=== PATIENT | male | born 1965 | race Caucasian/White ===

== ENCOUNTER 2021-04-28 16:43 | Observation (INO) | payer OTHER ==
[2021-04-28] MEDS ORDERED: DUONEB 0.5-3 MG/3 ml Neb IH ONE ×2 (17:43→17:55)
[2021-04-28] MEDS ORDERED: solu-MEDROL 125 MG, Sterile H2O 10 ml 2 ML IV ONE ×2 (17:43)
[2021-04-28] MEDS ORDERED: Lasix 40 MG/4 ML IV ONE (17:43)
[2021-04-28] MEDS ORDERED: BABY ASPIRIN 81 MG CHEW PO ONE (17:44)
--- NOTE | 2021-04-28 17:49 | ERPHSYRPT ---
- History of Present Illness Time Seen by Provider: 04/28/21 17:15 Source: patient Exam Limitations: no limitations Patient Subjective Stated Complaint: Patient states he has had swelling and shortness of breath for one month. STates he was tested for Covid last week because he was sick because it was negative. States his legs "get like this sometimes" but usually his "water pill helps". States he is taking his medication as prescribed. Triage Nursing Assessment: patients legs edema bilaterally. lower legs hot to touch and red in color. R great toe swollen. pulses present. Physician History: 55 years old male with a history of COPD, tobacco abuse, coronary artery disease status post stenting, congestive heart failure presented in the ER with chief complaint of creasing shortness of breath for last 3 weeks and bilateral lower extremity swelling. Patient reports he was seen at primary care and is on Lasix orally but does not seem helping. Patient reports shortness of breath especially with activity and gets out of breath walking from one room to another and has to rest to catch his breath. Denies any chest pain but tightness and pressure. No fever chills but has productive cough. Patient reports bilateral leg and feet swelling and tightness which is getting worse lately. Timing/Duration: week(s) (3), constant, gradual onset, worse Activities at Onset: activity Severity of Dyspnea-Max: moderate Severity of Dyspnea-Current: moderate Possible Cause: occasional episodes Modifying Factors: Worsens With: coughing, exertion Associated Symptoms: cough, chest pain/discomfort, edema, heaviness, muscle spasms hands, productive cough, tightness Allergies/Adverse Reactions: No Known Drug Allergies Allergy (Unverified 04/28/21 17:13) Home Medications: Atorvastatin Calcium 20 mg PO DAILY 04/28/21 [History] Dextroamphetamine/Amphetamine [Adderall 15 mg Tablet] 15 mg PO DAILY 04/28/21 [History] Furosemide 40 mg [Lasix 40 MG] 40 mg PO DAILY 04/28/21 [History] Hydrocodone/Acetaminophen [Hydrocodone-Acetamin 10-300 mg] 1 tab PO PRN 04/28/21 [History] Testosterone Cypionate 100 mg IM 04/28/21 [History] Hx Tetanus, Diphtheria Vaccination/Date Given: Yes Hx Influenza Vaccination/Date Given: Yes Hx Pneumococcal Vaccination/Date Given: Yes Immunizations Up to Date: Yes Travel Risk - International Travel Have you traveled outside of the country in past 3 weeks: No - Coronavirus Screening Are you exhibiting any of the following symptoms?: Yes Symptoms: Shortness of Breath - Vaccine Status Have you recieved a Covid-19 vaccination: No - Review of Systems Constitutional: No Symptoms Eyes: No Symptoms Ears, Nose, & Throat: No Symptoms Respiratory: Cough, Dyspnea, Dyspnea on Exertion (HERNANDEZ), Wheezing Cardiac: No Symptoms Abdominal/Gastrointestinal: No Symptoms Genitourinary Symptoms: No Symptoms Musculoskeletal: No Symptoms Skin: No Symptoms Neurological: No Symptoms Psychological: No Symptoms Endocrine: No Symptoms Hematologic/Lymphatic: No Symptoms Immunological/Allergic: No Symptoms - Past Medical History Pertinent Past Medical History: Yes Neurological History: No Pertinent History ENT History: No Pertinent History Cardiac History: Other Respiratory History: No Pertinent History Endocrine Medical History: No Pertinent History Musculoskeletal History: No Pertinent History GI Medical History: No Pertinent History History: No Pertinent History Psycho-Social History: No Pertinent History Male Reproductive Disorders: No Pertinent History Other Medical History: blockage in heart stint in october 2019, heart attack june 2020- two stints, - Past Surgical History Past Surgical History: Yes Neuro Surgical History: No Pertinent History Cardiac: No Pertinent History Respiratory: No Pertinent History Gastrointestinal: No Pertinent History Genitourinary: No Pertinent History Musculoskeletal: Other Male Surgical History: No Pertinent History Other Surgical History: Spinal surgery for cyst, carpal tunnel surgery R hand, pins in L wrist - Social History Smoking Status: Current every day smoker Exposure to second hand smoke: Yes Drug Use: marijuana Patient Lives Alone: Yes - Nursing Vital Signs Nursing Vital Signs: Initial Vital Signs Temperature 97.1 F 04/28/21 17:03 Pulse Rate 109 H 04/28/21 17:03 Respiratory Rate 20 04/28/21 17:03 Blood Pressure 158/106 04/28/21 17:03 O2 Sat by Pulse Oximetry 98 04/28/21 17:03 Pain Scale Pain Intensity 4 - Physical Exam General Appearance: no apparent distress, alert Eye Exam: PERRL/EOMI, eyes nml inspection Ears, Nose, Throat Exam: hearing grossly normal, normal ENT inspection Neck Exam: normal inspection, non-tender, supple, full range of motion Respiratory Exam: diminished breath sounds, rhonchi, wheezing Cardiovascular/Chest Exam: normal heart sounds, edema, tachycardia Abdominal/Gastrointestinal Exam: soft, normal bowel sounds, No tenderness Extremity Exam: non-tender, normal range of motion, No no pedal edema Neurologic Exam: alert, oriented x 3, cooperative Skin Exam: normal color SpO2 Interpretation: normal SpO2: 98 O2 Delivery: Room Air - Course EKG Interpreted by Me: RATE ([id number]), Sinus Rhythm, Left [place] Deviation, NORMAL INTERVALS, Q-wave, Non-specific ST Changes Ordered Tests: Active Orders 24 hr Category Date Time Status Factory Assembler STAT Care 04/28/21 17:44 Active EKG-ER Only STAT Care 04/28/21 17:43 Active IV Insertion STAT Care 04/28/21 17:43 Active Oxygen-ED Only Nasal Cannula 2 lpm Care 04/28/21 17:43 Active CHEST 1 VIEW (PORTABLE) Stat Exams 04/28/21 17:44 Taken BLOOD CULTURE Stat Lab 04/28/21 17:44 Ordered CBC W DIFF Stat Lab 04/28/21 18:33 Completed CMP Stat Lab 04/28/21 18:33 Completed Lactic Acid Stat Lab 04/28/21 18:45 Completed MAGNESIUM Stat Lab 04/28/21 18:33 Completed NT PRO BNP Stat Lab 04/28/21 18:33 Completed TROPONIN Q3H Lab 04/28/21 18:33 Completed TROPONIN Q3H Lab 04/28/21 20:45 Ordered TROPONIN Q3H Lab 04/28/21 23:45 Ordered TROPONIN Q3H Lab 04/29/21 02:45 Ordered TROPONIN Q3H Lab 04/29/21 05:45 Ordered UA W/RFX UR CULTURE Stat Lab 04/28/21 18:49 Completed Respiratory Therapy Assessment DAILY RT 04/28/21 18:55 Active Medication Summary Discontinued Medications Generic Name Dose Route Start Last Admin Trade Name Freq PRN Reason Stop Dose Admin Albuterol/Ipratropium 3 ml 04/28/21 17:43 04/28/21 17:55 Ipratropium/Albuterol Sulfate 3 Ml Ampul.Neb IH 04/28/21 17:44 3 ml STAT ONE Administration Albuterol/Ipratropium Confirm 04/28/21 17:55 Ipratropium/Albuterol Sulfate 3 Ml Ampul.Neb Administered 04/28/21 17:56 Dose 3 ml IH .STK-MED ONE Aspirin 324 mg 04/28/21 17:44 04/28/21 17:55 Aspirin 81 Mg Tab.Chew PO 04/28/21 17:45 324 mg STAT ONE Administration Methylprednisolone Sodium 0 mg 04/28/21 17:43 04/28/21 17:55 Succinate 125 mg/ Sterile IV 04/28/21 17:44 125 mg Water 2 ml STAT ONE Administration Furosemide 60 mg 04/28/21 17:43 04/28/21 17:54 Furosemide 40 Mg/4 Ml Vial IV 04/28/21 17:44 60 mg STAT ONE Administration Furosemide Confirm 04/28/21 17:53 Furosemide 40 Mg/4 Ml Vial Administered 04/28/21 17:54 Dose 80 mg .ROUTE .STK-MED ONE Methylprednisolone Sodium Succinate Confirm 04/28/21 17:53 Methylprednis Sod Succ 125 Mg/2 Ml Vial Administered 04/28/21 17:54 Dose 125 mg .ROUTE .STK-MED ONE Sterile Water Confirm 04/28/21 17:53 Water For Injection,Sterile 10 Ml Vial Administered 04/28/21 17:54 Dose 10 ml IJ .STK-MED ONE Lab/Rad Data: Laboratory Result Diagrams 04/28/21 18:33 04/28/21 18:33 Laboratory Results 04/28/21 04/28/21 04/28/21 Range/Units 18:49 18:45 18:33 WBC (4.0-10.5) K/mm3 RBC (4.1-5.6) M/mm3 Hgb (12.5-18.0) gm/dl Hct (42-50) % MCV (78-100) fl MCH (26-32) pg MCHC (32-36) g/dl RDW (11.5-14.0) % Plt Count (150-450) K/mm3 MPV (7.5-11.0) fl Gran % (36.0-66.0) % Eos # (Auto) (0-0.5) Absolute Lymphs (auto) (1.0-4.6) Absolute Monos (auto) (0.0-1.3) Lymphocytes % (24.0-44.0) % Monocytes % (0.0-12.0) % Eosinophils % (0.00-5.0) % Basophils % (0.0-0.4) % Absolute Granulocytes (1.4-6.9) Basophils # (0-0.4) Sodium (137-145) mmol/L Potassium (3.5-5.1) mmol/L Chloride (98-107) mmol/L Carbon Dioxide (22-30) mmol/L Anion Gap (5-15) MEQ/L BUN (9-20) mg/dL Creatinine (0.66-1.25) mg/dL Estimated GFR ML/MIN Glucose (74-106) mg/dL Lactic Acid 1.3 (0.4-2.0) Calcium (8.4-10.2) mg/dL Magnesium (1.6-2.3) mg/dL Total Bilirubin (0.2-1.3) mg/dL AST (17-59) U/L ALT (0-50) U/L Alkaline Phosphatase (38-126) U/L Troponin I 0.051 H* (0.000-0.034) ng/mL NT-Pro-B Natriuret Pep (0-900) pg/mL Serum Total Protein (6.3-8.2) g/dL Albumin (3.5-5.0) g/dL Urine Color YELLOW (YELLOW) Urine Appearance CLEAR (CLEAR) Urine pH 6.0 (5-6) Ur Specific [place] 1.010 (1.005-1.025) Urine Protein NEGATIVE (Negative) Urine Ketones NEGATIVE (NEGATIVE) Urine Blood NEGATIVE (0-5) Nasir/ul Urine Nitrite NEGATIVE (NEGATIVE) Urine Bilirubin NEGATIVE (NEGATIVE) Urine Urobilinogen NEGATIVE (0-1) mg/dL Ur Leukocyte Esterase NEGATIVE (NEGATIVE) Urine WBC (Auto) NONE (0-5) /HPF Urine RBC (Auto) NONE (0-2) /HPF U Epithel Cells (Auto) NONE (FEW) /HPF Urine Bacteria (Auto) NONE (NEGATIVE) /HPF Urine Mucus (Auto) SLIGHT (NEGATIVE) /HPF Urine Culture Reflexed NO (NO) Urine Glucose 50 (NEGATIVE) mg/dL 04/28/21 04/28/21 Range/Units 18:33 18:33 WBC 6.3 (4.0-10.5) K/mm3 RBC 4.57 (4.1-5.6) M/mm3 Hgb 11.9 L (12.5-18.0) gm/dl Hct 39.1 L (42-50) % MCV 85.6 (78-100) fl MCH 26.0 (26-32) pg MCHC 30.4 L (32-36) g/dl RDW 14.9 H (11.5-14.0) % Plt Count 160 (150-450) K/mm3 MPV 10.9 (7.5-11.0) fl Gran % 68.7 H (36.0-66.0) % Eos # (Auto) 0.21 (0-0.5) Absolute Lymphs (auto) 1.20 (1.0-4.6) Absolute Monos (auto) 0.55 (0.0-1.3) Lymphocytes % 19.0 L (24.0-44.0) % Monocytes % 8.7 (0.0-12.0) % Eosinophils % 3.3 (0.00-5.0) % Basophils % 0.3 (0.0-0.4) % Absolute Granulocytes 4.33 (1.4-6.9) Basophils # 0.02 (0-0.4) Sodium 143 (137-145) mmol/L Potassium 3.6 (3.5-5.1) mmol/L Chloride 104 (98-107) mmol/L Carbon Dioxide 29 (22-30) mmol/L Anion Gap 13.1 (5-15) MEQ/L BUN 19 (9-20) mg/dL Creatinine 1.52 H (0.66-1.25) mg/dL Estimated GFR 50.7 ML/MIN Glucose 126 H (74-106) mg/dL Lactic Acid (0.4-2.0) Calcium 8.5 (8.4-10.2) mg/dL Magnesium 1.7 (1.6-2.3) mg/dL Total Bilirubin 1.00 (0.2-1.3) mg/dL AST 22 (17-59) U/L ALT 22 (0-50) U/L Alkaline Phosphatase 81 (38-126) U/L Troponin I (0.000-0.034) ng/mL NT-Pro-B Natriuret Pep 4130 H (0-900) pg/mL Serum Total Protein 7.1 (6.3-8.2) g/dL Albumin 3.9 (3.5-5.0) g/dL Urine Color (YELLOW) Urine Appearance (CLEAR) Urine pH (5-6) Ur Specific [place] (1.005-1.025) Urine Protein (Negative) Urine Ketones (NEGATIVE) Urine Blood (0-5) Nasir/ul Urine Nitrite (NEGATIVE) Urine Bilirubin (NEGATIVE) Urine Urobilinogen (0-1) mg/dL Ur Leukocyte Esterase (NEGATIVE) Urine WBC (Auto) (0-5) /HPF Urine RBC (Auto) (0-2) /HPF U Epithel Cells (Auto) (FEW) /HPF Urine Bacteria (Auto) (NEGATIVE) /HPF Urine Mucus (Auto) (NEGATIVE) /HPF Urine Culture Reflexed (NO) Urine Glucose (NEGATIVE) mg/dL - Progress Progress: improved Air Movement: fair Progress Note: 04/28/21 19:31 55 years old is evaluated for increasing bilateral lower extremity swelling and difficulty breathing despite taking Lasix. Is given breathing treatment, IV Lasix. Chest x-ray showed bilateral congestion. Patient has elevated BNP of 4100 and initial troponin of 0.[address] elevations. I believe elevated troponin is secondary to CHF exacerbation. I have discussed with Dr. Narvaez and patient is being admitted for CHF exacerbation, diuresis and will continue to trend cardiac enzymes. Blood Culture(s) Obtained: Yes Antibiotics given: No Discussed with : Ramses Will see patient in: hospital (observation) Counseled pt/family regarding: lab results, diagnosis, rad results - Departure Departure Disposition: Observation Clinical Impression: CHF exacerbation Condition: Stable Critical Care Time: No Referrals: MARY FINN [Primary Care Provider] - Follow up/PCP as directed Instructions: Heart Failure
[2021-04-28] MEDS ORDERED: Sterile H2O 10 ml IJ ONE (17:53)
[2021-04-28] MEDS ORDERED: solu-MEDROL ONE (17:53)
[2021-04-28] MEDS ORDERED: Lasix 40 MG/4 ML ONE (17:53)
[2021-04-28 18:36] LABS: Absolute Neutrophil Ct (ANC) 4.33 (1.4-6.9); Basophil (Absolute #) 0.02 (0-0.4); Eosinophil % 3.3 % (0.00-5.0); Eosinophil (Absolute #) 0.21 (0-0.5); Hematocrit 39.1 % (42-50); Hemoglobin 11.9 gm/dl (12.5-18.0); Mean Cell Volume 85.6 fl (78-100); Mean Corpuscular Hgb Concent. 30.4 g/dl (32-36); Mean Platelet Volume 10.9 fl (7.5-11.0); Monocyte (Absolute #) 0.55 (0.0-1.3); Monocytes % 8.7 % (0.0-12.0); Neutrophil % 68.7 % (36.0-66.0); Platelet Count 160 K/mm3 (150-450); Red Blood Count 4.57 M/mm3 (4.1-5.6); Red Cell Distribution Width 14.9 % (11.5-14.0); White Blood Count 6.3 K/mm3 (4.0-10.5)
[2021-04-28 18:56] LABS: ALBUMIN 3.9 g/dL (3.5-5.0); ANION GAP 13.1 MEQ/L (5-15); Calcium 8.5 mg/dL (8.4-10.2); Creatinine 1 1.52 mg/dL (0.66-1.25); EST GLOMERULAR FILTRATION RATE 50.7 ML/MIN; MAGNESIUM 1.7 mg/dL (1.6-2.3); Potassium 3.6 mmol/L (3.5-5.1); Total Protein 7.1 g/dL (6.3-8.2)
[2021-04-28 19:23] LABS: Appearance CLEAR (CLEAR); Bilirubin NEGATIVE (NEGATIVE); Blood NEGATIVE Ery/ul (0-5); Glucose 50 mg/dL (NEGATIVE); Ketones NEGATIVE (NEGATIVE); Leukocyte Esterase NEGATIVE (NEGATIVE); Mucus SLIGHT /HPF (NEGATIVE); Nitrite NEGATIVE (NEGATIVE); Protein,Urine Dip NEGATIVE (Negative); Urobilinogen NEGATIVE mg/dL (0-1)
--- NOTE | 2021-04-28 19:42 | XRAY ---
Indication: Short of breath. Bilateral leg swelling. Comparison: September 17, 2006. Portable chest is limited as both costophrenic angles not included. New cardiomegaly and small right base calcified granuloma. Remaining visualized lungs clear. Bony thorax intact.
[2021-04-28 23:02] LABS: INFLUENZA A NEGATIVE (NEGATIVE); INFLUENZA B NEGATIVE (NEGATIVE); RESPIRATORY SYNCTIAL VIRUS NEGATIVE (Negative); SARS-CoV-2 Xpert Express NEGATIVE (NEGATIVE)
[2021-04-29] MEDS ORDERED: TYLENOL 325 MG PO PRN (00:57)
[2021-04-29] MEDS ORDERED: MORPHINE SULFATE 2 MG INJ IV PRN (00:57)
[2021-04-29] MEDS ORDERED: Zofran 4 MG/2 ML VIAL IV PRN (00:57)
[2021-04-29] MEDS: DUONEB 0.5-3 MG/3 ml Neb IH SCH ×2 (01:25→07:19)
[2021-04-29 05:17] LABS: Hematocrit 36.2 % (42-50); Hemoglobin 11.5 gm/dl (12.5-18.0); Mean Cell Volume 82.8 fl (78-100); Mean Corpuscular Hemoglobin 26.3 pg (26-32); Mean Corpuscular Hgb Concent. 31.8 g/dl (32-36); Mean Platelet Volume 10.8 fl (7.5-11.0); Platelet Count 189 K/mm3 (150-450); Red Blood Count 4.37 M/mm3 (4.1-5.6); Red Cell Distribution Width 14.7 % (11.5-14.0); White Blood Count 4.2 K/mm3 (4.0-10.5)
[2021-04-29 05:21] LABS: Lymphocytes % 5.3 % (24.0-44.0); Neutrophil % 93.7 % (36.0-66.0)
[2021-04-29 05:22] LABS: Absolute Neutrophil Ct (ANC) 3.89 (1.4-6.9); Basophil (Absolute #) 0 (0-0.4); Eosinophil (Absolute #) 0 (0-0.5); Lymphocyte (Absolute #) 0.22 (1.0-4.6); Monocyte (Absolute #) 0.04 (0.0-1.3)
[2021-04-29 05:43] LABS: ALBUMIN 4.1 g/dL (3.5-5.0); ANION GAP 15.1 MEQ/L (5-15); BILIRUBIN,TOTAL 0.7 mg/dL (0.2-1.3); Calcium 8.6 mg/dL (8.4-10.2); Creatinine 1 1.62 mg/dL (0.66-1.25); EST GLOMERULAR FILTRATION RATE 47.1 ML/MIN; Potassium 3.5 mmol/L (3.5-5.1); Total Protein 7.7 g/dL (6.3-8.2)
[2021-04-29 06:50] LABS: Slide Review 1 YES
--- NOTE | 2021-04-29 07:21 | PCM.HP ---
History of Present Illness - Chief Complaint Chief Complaint: shortness of breath for 1-2 days History of Present Illness: is a 55 year old male.with a history of COPD, tobacco abuse, coronary artery disease status post stenting, congestive heart failure presented in the ER with chief complaint of creasing shortness of breath for last 3 weeks and bilateral lower extremity swelling. Patient reports he was seen at primary care and is on Lasix orally but does not seem helping. Patient reports shortness of breath especially with activity and gets out of breath walking from one room to another and has to rest to catch his breath. Denies any chest pain but tightness and pressure. No fever chills but has productive cough. Patient reports bilateral leg and feet swelling and tightness which is getting worse lately. Timing/Duration: week(s) (3), constant, gradual onset, worse Activities at Onset: activity Severity of Dyspnea-Max: moderate Severity of Dyspnea-Current: moderate Possible Cause: occasional episodes Modifying Factors: Worsens With: coughing, exertion Associated Symptoms: cough, chest pain/discomfort, edema, heaviness, muscle spasms hands, productive cough, tightness - Review of Systems Constitutional: No Fever, No Chills Eyes: No Symptoms Ears, Nose, & Throat: No Symptoms Respiratory: Orthopnea, Short Of Breath, Wheezing, No Cough Cardiac: No Chest Pain, No Edema, No Syncope Abdominal/Gastrointestinal: No Abdominal Pain, No Nausea, No Vomiting, No Diarrhea Genitourinary Symptoms: No Dysuria Musculoskeletal: No Back Pain, No Neck Pain Skin: No Rash Neurological: No Dizziness, No Focal Weakness, No Sensory Changes Psychological: No Symptoms Endocrine: No Symptoms Hematologic/Lymphatic: No Symptoms Immunological/Allergic: No Symptoms Medications & Allergies Home Medications: Home Medication List Atorvastatin Calcium 20 mg PO DAILY 04/28/21 [History Confirmed 04/28/21] Dextroamphetamine/Amphetamine [Adderall 15 mg Tablet] 15 mg PO DAILY 04/28/21 [History Confirmed 04/28/21] Furosemide 40 mg [Lasix 40 MG] 40 mg PO DAILY 04/28/21 [History Confirmed 04/28/21] Hydrocodone/Acetaminophen [Hydrocodone-Acetamin 10-300 mg] 1 tab PO PRN 04/28/21 [History] Testosterone Cypionate 100 mg IM 04/28/21 [History] Allergies/Adverse Reactions: Allergies Allergy/AdvReac Type Severity Reaction Status Date / Time No Known Drug Allergies Allergy Unverified 04/28/21 17:13 - Past Medical History Past Medical History: Yes Neurological History: No Pertinent History ENT History: No Pertinent History Cardiac History: Congestive Heart Failure, Myocardial Infarction ([place]), Other Respiratory History: No Pertinent History Endocrine Medical History: No Pertinent History Musculoskelatal History: No Pertinent History GI Medical History: No Pertinent History History: No Pertinent History Pyscho-Social History: No Pertinent History Male Reproductive Disorders: No Pertinent History Comment: blockage in heart stint in october 2019, heart attack june 2020- two stints, - Past Surgical History Past Surgical History: Yes Neuro Surgical History: No Pertinent History Cardiac History: Cardiac Stent Respiratory Surgery: No Pertinent History GI Surgical History: No Pertinent History Genitourinary Surgical Hx: No Pertinent History Musculskeletal Surgical Hx: Other Male Surgical History: No Pertinent History Other Surgical History: Spinal surgery for cyst, carpal tunnel surgery R hand, pins in L wrist - Social History Smoking Status: Current every day smoker Exposure to second hand smoke: Yes Alcohol: None Drug Use: marijuana - Physical Exam Vital Signs: Vital Signs - 24 hr Temp Pulse Resp BP Pulse Ox 04/29/21 04:00 97.8 F 95 H 20 116/58 96 04/29/21 01:25 98 H 18 93 L 04/29/21 01:08 96.5 F 88 20 116/70 95 04/29/21 00:09 88 137/78 95 04/28/21 23:11 90 133/83 95 04/28/21 22:07 94 H 111/63 96 04/28/21 21:10 91 H 131/93 95 04/28/21 20:21 89 127/87 96 04/28/21 19:39 92 H 141/92 97 04/28/21 19:34 98 04/28/21 18:55 98 H 18 192/117 93 L 04/28/21 17:55 99 H 18 97 04/28/21 17:03 97.1 F 109 H 20 158/106 98 General Appearance: no apparent distress, alert Neurologic Exam: alert, oriented x 3, cooperative, normal mood/affect, nml cerebellar function, nml station & gait, sensation nml, No motor deficits Eye Exam: PERRL/EOMI, eyes nml inspection Ears, Nose, Throat Exam: normal ENT inspection, TMs normal, pharynx normal, moist mucous membranes Neck Exam: normal inspection, non-tender, supple, full range of motion Respiratory Exam: diminished breath sounds, crackles/rales, rhonchi, wheezing, No respiratory distress Cardiovascular Exam: regular rate/rhythm, normal heart sounds, normal peripheral pulses Gastrointestinal/Abdomen Exam: soft, normal bowel sounds, No tenderness, No mass Back Exam: normal inspection, normal range of motion, No CVA tenderness, No vertebral tenderness Extremity Exam: normal inspection, normal range of motion, pelvis stable Skin Exam: normal color, warm, dry, No rash Lymphatic Exam: No adenopathy Results - Labs Lab/Micro Results: Lab Results-Last 24 Hours 04/28/21 04/28/21 04/28/21 Range/Units 18:33 18:33 18:33 WBC 6.3 (4.0-10.5) K/mm3 RBC 4.57 (4.1-5.6) M/mm3 Hgb 11.9 L (12.5-18.0) gm/dl Hct 39.1 L (42-50) % MCV 85.6 (78-100) fl MCH 26.0 (26-32) pg MCHC 30.4 L (32-36) g/dl RDW 14.9 H (11.5-14.0) % Plt Count 160 (150-450) K/mm3 MPV 10.9 (7.5-11.0) fl Gran % 68.7 H (36.0-66.0) % Eos # (Auto) 0.21 (0-0.5) Absolute Lymphs (auto) 1.20 (1.0-4.6) Absolute Monos (auto) 0.55 (0.0-1.3) Lymphocytes % 19.0 L (24.0-44.0) % Monocytes % 8.7 (0.0-12.0) % Eosinophils % 3.3 (0.00-5.0) % Basophils % 0.3 (0.0-0.4) % Absolute Granulocytes 4.33 (1.4-6.9) Basophils # 0.02 (0-0.4) Sodium 143 (137-145) mmol/L Potassium 3.6 (3.5-5.1) mmol/L Chloride 104 (98-107) mmol/L Carbon Dioxide 29 (22-30) mmol/L Anion Gap 13.1 (5-15) MEQ/L BUN 19 (9-20) mg/dL Creatinine 1.52 H (0.66-1.25) mg/dL Estimated GFR 50.7 ML/MIN Glucose 126 H (74-106) mg/dL Lactic Acid (0.4-2.0) Calcium 8.5 (8.4-10.2) mg/dL Magnesium 1.7 (1.6-2.3) mg/dL Total Bilirubin 1.00 (0.2-1.3) mg/dL AST 22 (17-59) U/L ALT 22 (0-50) U/L Alkaline Phosphatase 81 (38-126) U/L Troponin I 0.051 H* (0.000-0.034) ng/mL NT-Pro-B Natriuret Pep 4130 H (0-900) pg/mL Serum Total Protein 7.1 (6.3-8.2) g/dL Albumin 3.9 (3.5-5.0) g/dL Urine Color (YELLOW) Urine Appearance (CLEAR) Urine pH (5-6) Ur Specific [place] (1.005-1.025) Urine Protein (Negative) Urine Ketones (NEGATIVE) Urine Blood (0-5) Nasir/ul Urine Nitrite (NEGATIVE) Urine Bilirubin (NEGATIVE) Urine Urobilinogen (0-1) mg/dL Ur Leukocyte Esterase (NEGATIVE) Urine WBC (Auto) (0-5) /HPF Urine RBC (Auto) (0-2) /HPF U Epithel Cells (Auto) (FEW) /HPF Urine Bacteria (Auto) (NEGATIVE) /HPF Urine Mucus (Auto) (NEGATIVE) /HPF Urine Culture Reflexed (NO) Urine Glucose (NEGATIVE) mg/dL Influenza Type A Ag (NEGATIVE) Influenza Type B Ag (NEGATIVE) RSV (PCR) (Negative) SARS-CoV-2 (PCR) (NEGATIVE) Slides for Path Review 04/28/21 04/28/21 04/28/21 Range/Units 18:45 18:49 21:15 WBC (4.0-10.5) K/mm3 RBC (4.1-5.6) M/mm3 Hgb (12.5-18.0) gm/dl Hct (42-50) % MCV (78-100) fl MCH (26-32) pg MCHC (32-36) g/dl RDW (11.5-14.0) % Plt Count (150-450) K/mm3 MPV (7.5-11.0) fl Gran % (36.0-66.0) % Eos # (Auto) (0-0.5) Absolute Lymphs (auto) (1.0-4.6) Absolute Monos (auto) (0.0-1.3) Lymphocytes % (24.0-44.0) % Monocytes % (0.0-12.0) % Eosinophils % (0.00-5.0) % Basophils % (0.0-0.4) % Absolute Granulocytes (1.4-6.9) Basophils # (0-0.4) Sodium (137-145) mmol/L Potassium (3.5-5.1) mmol/L Chloride (98-107) mmol/L Carbon Dioxide (22-30) mmol/L Anion Gap (5-15) MEQ/L BUN (9-20) mg/dL Creatinine (0.66-1.25) mg/dL Estimated GFR ML/MIN Glucose (74-106) mg/dL Lactic Acid 1.3 (0.4-2.0) Calcium (8.4-10.2) mg/dL Magnesium (1.6-2.3) mg/dL Total Bilirubin (0.2-1.3) mg/dL AST (17-59) U/L ALT (0-50) U/L Alkaline Phosphatase (38-126) U/L Troponin I 0.045 H* (0.000-0.034) ng/mL NT-Pro-B Natriuret Pep (0-900) pg/mL Serum Total Protein (6.3-8.2) g/dL Albumin (3.5-5.0) g/dL Urine Color YELLOW (YELLOW) Urine Appearance CLEAR (CLEAR) Urine pH 6.0 (5-6) Ur Specific [place] 1.010 (1.005-1.025) Urine Protein NEGATIVE (Negative) Urine Ketones NEGATIVE (NEGATIVE) Urine Blood NEGATIVE (0-5) Nasir/ul Urine Nitrite NEGATIVE (NEGATIVE) Urine Bilirubin NEGATIVE (NEGATIVE) Urine Urobilinogen NEGATIVE (0-1) mg/dL Ur Leukocyte Esterase NEGATIVE (NEGATIVE) Urine WBC (Auto) NONE (0-5) /HPF Urine RBC (Auto) NONE (0-2) /HPF U Epithel Cells (Auto) NONE (FEW) /HPF Urine Bacteria (Auto) NONE (NEGATIVE) /HPF Urine Mucus (Auto) SLIGHT (NEGATIVE) /HPF Urine Culture Reflexed NO (NO) Urine Glucose 50 (NEGATIVE) mg/dL Influenza Type A Ag (NEGATIVE) Influenza Type B Ag (NEGATIVE) RSV (PCR) (Negative) SARS-CoV-2 (PCR) (NEGATIVE) Slides for Path Review 04/28/21 04/28/21 04/29/21 Range/Units 22:10 23:54 02:44 WBC (4.0-10.5) K/mm3 RBC (4.1-5.6) M/mm3 Hgb (12.5-18.0) gm/dl Hct (42-50) % MCV (78-100) fl MCH (26-32) pg MCHC (32-36) g/dl RDW (11.5-14.0) % Plt Count (150-450) K/mm3 MPV (7.5-11.0) fl Gran % (36.0-66.0) % Eos # (Auto) (0-0.5) Absolute Lymphs (auto) (1.0-4.6) Absolute Monos (auto) (0.0-1.3) Lymphocytes % (24.0-44.0) % Monocytes % (0.0-12.0) % Eosinophils % (0.00-5.0) % Basophils % (0.0-0.4) % Absolute Granulocytes (1.4-6.9) Basophils # (0-0.4) Sodium (137-145) mmol/L Potassium (3.5-5.1) mmol/L Chloride (98-107) mmol/L Carbon Dioxide (22-30) mmol/L Anion Gap (5-15) MEQ/L BUN (9-20) mg/dL Creatinine (0.66-1.25) mg/dL Estimated GFR ML/MIN Glucose (74-106) mg/dL Lactic Acid (0.4-2.0) Calcium (8.4-10.2) mg/dL Magnesium (1.6-2.3) mg/dL Total Bilirubin (0.2-1.3) mg/dL AST (17-59) U/L ALT (0-50) U/L Alkaline Phosphatase (38-126) U/L Troponin I 0.036 H* 0.027 (0.000-0.034) ng/mL NT-Pro-B Natriuret Pep (0-900) pg/mL Serum Total Protein (6.3-8.2) g/dL Albumin (3.5-5.0) g/dL Urine Color (YELLOW) Urine Appearance (CLEAR) Urine pH (5-6) Ur Specific [place] (1.005-1.025) Urine Protein (Negative) Urine Ketones (NEGATIVE) Urine Blood (0-5) Nasir/ul Urine Nitrite (NEGATIVE) Urine Bilirubin (NEGATIVE) Urine Urobilinogen (0-1) mg/dL Ur Leukocyte Esterase (NEGATIVE) Urine WBC (Auto) (0-5) /HPF Urine RBC (Auto) (0-2) /HPF U Epithel Cells (Auto) (FEW) /HPF Urine Bacteria (Auto) (NEGATIVE) /HPF Urine Mucus (Auto) (NEGATIVE) /HPF Urine Culture Reflexed (NO) Urine Glucose (NEGATIVE) mg/dL Influenza Type A Ag NEGATIVE (NEGATIVE) Influenza Type B Ag NEGATIVE (NEGATIVE) RSV (PCR) NEGATIVE (Negative) SARS-CoV-2 (PCR) NEGATIVE (NEGATIVE) Slides for Path Review 04/29/21 04/29/21 04/29/21 Range/Units 04:50 04:50 04:50 WBC 4.2 (4.0-10.5) K/mm3 RBC 4.37 (4.1-5.6) M/mm3 Hgb 11.5 L (12.5-18.0) gm/dl Hct 36.2 L (42-50) % MCV 82.8 (78-100) fl MCH 26.3 (26-32) pg MCHC 31.8 L (32-36) g/dl RDW 14.7 H (11.5-14.0) % Plt Count 189 (150-450) K/mm3 MPV 10.8 (7.5-11.0) fl Gran % 93.7 H (36.0-66.0) % Eos # (Auto) 0 (0-0.5) Absolute Lymphs (auto) 0.22 L (1.0-4.6) Absolute Monos (auto) 0.04 (0.0-1.3) Lymphocytes % 5.3 L (24.0-44.0) % Monocytes % 1.0 (0.0-12.0) % Eosinophils % 0.0 (0.00-5.0) % Basophils % 0.0 (0.0-0.4) % Absolute Granulocytes 3.89 (1.4-6.9) Basophils # 0 (0-0.4) Sodium 141 (137-145) mmol/L Potassium 3.5 (3.5-5.1) mmol/L Chloride 102 (98-107) mmol/L Carbon Dioxide 28 (22-30) mmol/L Anion Gap 15.1 H (5-15) MEQ/L BUN 20 (9-20) mg/dL Creatinine 1.62 H (0.66-1.25) mg/dL Estimated GFR 47.1 ML/MIN Glucose 225 H (74-106) mg/dL Lactic Acid (0.4-2.0) Calcium 8.6 (8.4-10.2) mg/dL Magnesium (1.6-2.3) mg/dL Total Bilirubin 0.70 (0.2-1.3) mg/dL AST 23 (17-59) U/L ALT 24 (0-50) U/L Alkaline Phosphatase 76 (38-126) U/L Troponin I 0.026 (0.000-0.034) ng/mL NT-Pro-B Natriuret Pep (0-900) pg/mL Serum Total Protein 7.7 (6.3-8.2) g/dL Albumin 4.1 (3.5-5.0) g/dL Urine Color (YELLOW) Urine Appearance (CLEAR) Urine pH (5-6) Ur Specific [place] (1.005-1.025) Urine Protein (Negative) Urine Ketones (NEGATIVE) Urine Blood (0-5) Nasir/ul Urine Nitrite (NEGATIVE) Urine Bilirubin (NEGATIVE) Urine Urobilinogen (0-1) mg/dL Ur Leukocyte Esterase (NEGATIVE) Urine WBC (Auto) (0-5) /HPF Urine RBC (Auto) (0-2) /HPF U Epithel Cells (Auto) (FEW) /HPF Urine Bacteria (Auto) (NEGATIVE) /HPF Urine Mucus (Auto) (NEGATIVE) /HPF Urine Culture Reflexed (NO) Urine Glucose (NEGATIVE) mg/dL Influenza Type A Ag (NEGATIVE) Influenza Type B Ag (NEGATIVE) RSV (PCR) (Negative) SARS-CoV-2 (PCR) (NEGATIVE) Slides for Path Review YES - Radiology Impressions Radiology Exams & Impressions: Radiology Procedures Category Date Time Status CHEST 1 VIEW (PORTABLE) Stat Exams 04/28/21 17:44 Completed - Other Procedures and Tests Respiratory Therapy 04/29/21 01:52 Respiratory Therapy Assessment DAILY Assessment/Plan (1) CHF exacerbation Current Visit: Yes Status: Acute Qualifiers: Heart failure type: combined systolic and diastolic Qualified Code(s): I50.43 - Acute on chronic combined systolic (congestive) and diastolic (congestive) heart failure Assessment & Plan: Chief Complaint Diagnosis CHF exacerbation Allergies Allergy/AdvReac Type Severity Reaction Status Date / Time No Known Drug Allergies Allergy Unverified 04/28/21 17:13 Vital Signs (Last 24 hours) Temp Pulse Resp BP Pulse Ox 04/29/21 04:00 97.8 F 95 H 20 116/58 96 04/29/21 01:25 98 H 18 93 L 04/29/21 01:08 96.5 F 88 20 116/70 95 04/29/21 00:09 88 137/78 95 04/28/21 23:11 90 133/83 95 04/28/21 22:07 94 H 111/63 96 04/28/21 21:10 91 H 131/93 95 04/28/21 20:21 89 127/87 96 04/28/21 19:39 92 H 141/92 97 04/28/21 19:34 98 04/28/21 18:55 98 H 18 192/117 93 L 04/28/21 17:55 99 H 18 97 04/28/21 17:03 97.1 F 109 H 20 158/106 98 Home Medications Medication Instructions Recorded Confirmed Last Taken Type Atorvastatin Calcium 20 mg PO DAILY 04/28/21 04/28/21 04/28/21 History Dextroamphetamine/Amphetamine 15 mg PO DAILY 04/28/21 04/28/21 04/27/21 History [Adderall 15 mg Tablet] Furosemide 40 mg [Lasix 40 40 mg PO DAILY 04/28/21 04/28/21 04/28/21 History MG] Hydrocodone/Acetaminophen 1 tab PO PRN 04/28/21 04/25/21 History [Hydrocodone-Acetamin 10-300 mg] Testosterone Cypionate 100 mg IM 04/28/21 04/23/21 History Current Medications Generic Name Dose Route Start Last Admin Trade Name Cedrickq PRN Reason Stop Dose Admin Acetaminophen 650 mg 04/29/21 00:57 Acetaminophen 325 Mg Tablet PO 05/29/21 00:56 Q4H PRN PRN PAIN AND/OR FEVER Albuterol/Ipratropium 3 ml 04/29/21 01:00 04/29/21 07:19 Ipratropium/Albuterol Sulfate 3 Ml Ampul.Neb 05/29/21 00:59 3 ml Q6HRT AFSHAN Administration Morphine Sulfate 2 mg 04/29/21 00:57 Morphine Sulfate 2 Mg/Ml Inj IV 05/04/21 00:56 Q4H PRN PRN PAIN Ondansetron HCl 4 mg 04/29/21 00:57 Ondansetron Hcl 4 Mg/2 Ml Vial IV 05/29/21 00:56 Q6H PRN PRN NAUSEA/VOMITING Pantoprazole Sodium 40 mg 04/29/21 10:00 Pantoprazole 40 Mg Vial IV 05/29/21 09:59 Q24H10 AFSHAN Discontinued Medications Generic Name Dose Route Start Last Admin Trade Name Mj PRN Reason Stop Dose Admin Albuterol/Ipratropium 3 ml 04/28/21 17:43 04/28/21 17:55 Ipratropium/Albuterol Sulfate 3 Ml Ampul.Neb IH 04/28/21 17:44 3 ml STAT ONE Administration Albuterol/Ipratropium Confirm 04/28/21 17:55 Ipratropium/Albuterol Sulfate 3 Ml Ampul.Neb Administered 04/28/21 17:56 Dose 3 ml IH .STK-MED ONE Aspirin 324 mg 04/28/21 17:44 04/28/21 17:55 Aspirin 81 Mg Tab.Chew PO 04/28/21 17:45 324 mg STAT ONE Administration Methylprednisolone Sodium 0 mg 04/28/21 17:43 04/28/21 17:55 Succinate 125 mg/ Sterile IV 04/28/21 17:44 125 mg Water 2 ml STAT ONE Administration Furosemide 60 mg 04/28/21 17:43 04/28/21 17:54 Furosemide 40 Mg/4 Ml Vial IV 04/28/21 17:44 60 mg STAT ONE Administration Furosemide Confirm 04/28/21 17:53 Furosemide 40 Mg/4 Ml Vial Administered 04/28/21 17:54 Dose 80 mg .ROUTE .STK-MED ONE Methylprednisolone Sodium Succinate Confirm 04/28/21 17:53 Methylprednis Sod Succ 125 Mg/2 Ml Vial Administered 04/28/21 17:54 Dose 125 mg .ROUTE .STK-MED ONE Sterile Water Confirm 04/28/21 17:53 Water For Injection,Sterile 10 Ml Vial Administered 04/28/21 17:54 Dose 10 ml IJ .STK-MED ONE Intake & Output (Last 24 hours) 04/26/21 04/27/21 04/28/21 04/29/21 11:59 11:59 11:59 11:59 Intake Total 960 Balance 960 Weight 117.2 kg Laboratory Results (Last 24 hours) 04/29/21 04/29/21 04/29/21 04:50 04:50 04:50 WBC 4.2 RBC 4.37 Hgb 11.5 L Hct 36.2 L MCV 82.8 MCH 26.3 MCHC 31.8 L RDW 14.7 H Plt Count 189 MPV 10.8 Gran % 93.7 H Eos # (Auto) 0 Absolute Lymphs (auto) 0.22 L Absolute Monos (auto) 0.04 Lymphocytes % 5.3 L Monocytes % 1.0 Eosinophils % 0.0 Basophils % 0.0 Absolute Granulocytes 3.89 Basophils # 0 Sodium 141 Potassium 3.5 Chloride 102 Carbon Dioxide 28 Anion Gap 15.1 H BUN 20 Creatinine 1.62 H Estimated GFR 47.1 Glucose 225 H Lactic Acid Calcium 8.6 Magnesium Total Bilirubin 0.70 AST 23 ALT 24 Alkaline Phosphatase 76 Troponin I 0.026 NT-Pro-B Natriuret Pep Serum Total Protein 7.7 Albumin 4.1 Urine Color Urine Appearance Urine pH Ur Specific [place] Urine Protein Urine Ketones Urine Blood Urine Nitrite Urine Bilirubin Urine Urobilinogen Ur Leukocyte Esterase Urine WBC (Auto) Urine RBC (Auto) U Epithel Cells (Auto) Urine Bacteria (Auto) Urine Mucus (Auto) Urine Culture Reflexed Urine Glucose Influenza Type A Ag Influenza Type B Ag RSV (PCR) SARS-CoV-2 (PCR) Slides for Path Review YES 04/29/21 04/28/21 04/28/21 02:44 23:54 22:10 WBC RBC Hgb Hct MCV MCH MCHC RDW Plt Count MPV Gran % Eos # (Auto) Absolute Lymphs (auto) Absolute Monos (auto) Lymphocytes % Monocytes % Eosinophils % Basophils % Absolute Granulocytes Basophils # Sodium Potassium Chloride Carbon Dioxide Anion Gap BUN Creatinine Estimated GFR Glucose Lactic Acid Calcium Magnesium Total Bilirubin AST ALT Alkaline Phosphatase Troponin I 0.027 0.036 H* NT-Pro-B Natriuret Pep Serum Total Protein Albumin Urine Color Urine Appearance Urine pH Ur Specific [place] Urine Protein Urine Ketones Urine Blood Urine Nitrite Urine Bilirubin Urine Urobilinogen Ur Leukocyte Esterase Urine WBC (Auto) Urine RBC (Auto) U Epithel Cells (Auto) Urine Bacteria (Auto) Urine Mucus (Auto) Urine Culture Reflexed Urine Glucose Influenza Type A Ag NEGATIVE Influenza Type B Ag NEGATIVE RSV (PCR) NEGATIVE SARS-CoV-2 (PCR) NEGATIVE Slides for Path Review 04/28/21 04/28/21 04/28/21 21:15 18:49 18:45 WBC RBC Hgb Hct MCV MCH MCHC RDW Plt Count MPV Gran % Eos # (Auto) Absolute Lymphs (auto) Absolute Monos (auto) Lymphocytes % Monocytes % Eosinophils % Basophils % Absolute Granulocytes Basophils # Sodium Potassium Chloride Carbon Dioxide Anion Gap BUN Creatinine Estimated GFR Glucose Lactic Acid 1.3 Calcium Magnesium Total Bilirubin AST ALT Alkaline Phosphatase Troponin I 0.045 H* NT-Pro-B Natriuret Pep Serum Total Protein Albumin Urine Color YELLOW Urine Appearance CLEAR Urine pH 6.0 Ur Specific [place] 1.010 Urine Protein NEGATIVE Urine Ketones NEGATIVE Urine Blood NEGATIVE Urine Nitrite NEGATIVE Urine Bilirubin NEGATIVE Urine Urobilinogen NEGATIVE Ur Leukocyte Esterase NEGATIVE Urine WBC (Auto) NONE Urine RBC (Auto) NONE U Epithel Cells (Auto) NONE Urine Bacteria (Auto) NONE Urine Mucus (Auto) SLIGHT Urine Culture Reflexed NO Urine Glucose 50 Influenza Type A Ag Influenza Type B Ag RSV (PCR) SARS-CoV-2 (PCR) Slides for Path Review 04/28/21 04/28/21 04/28/21 18:33 18:33 18:33 WBC 6.3 RBC 4.57 Hgb 11.9 L Hct 39.1 L MCV 85.6 MCH 26.0 MCHC 30.4 L RDW 14.9 H Plt Count 160 MPV 10.9 Gran % 68.7 H Eos # (Auto) 0.21 Absolute Lymphs (auto) 1.20 Absolute Monos (auto) 0.55 Lymphocytes % 19.0 L Monocytes % 8.7 Eosinophils % 3.3 Basophils % 0.3 Absolute Granulocytes 4.33 Basophils # 0.02 Sodium 143 Potassium 3.6 Chloride 104 Carbon Dioxide 29 Anion Gap 13.1 BUN 19 Creatinine 1.52 H Estimated GFR 50.7 Glucose 126 H Lactic Acid Calcium 8.5 Magnesium 1.7 Total Bilirubin 1.00 AST 22 ALT 22 Alkaline Phosphatase 81 Troponin I 0.051 H* NT-Pro-B Natriuret Pep 4130 H Serum Total Protein 7.1 Albumin 3.9 Urine Color Urine Appearance Urine pH Ur Specific [place] Urine Protein Urine Ketones Urine Blood Urine Nitrite Urine Bilirubin Urine Urobilinogen Ur Leukocyte Esterase Urine WBC (Auto) Urine RBC (Auto) U Epithel Cells (Auto) Urine Bacteria (Auto) Urine Mucus (Auto) Urine Culture Reflexed Urine Glucose Influenza Type A Ag Influenza Type B Ag RSV (PCR) SARS-CoV-2 (PCR) Slides for Path Review Orders (Last 24 hours) Category Date Time Status Bedrest ROUTINE Activity 04/29/21 00:57 Active Up With Assistance ROUTINE Activity 04/29/21 00:57 Active Salesperson Hearing Aids STAT Care 04/28/21 17:44 Completed Code Status Order ROUTINE Care 04/29/21 00:57 Active EKG-ER Only STAT Care 04/28/21 17:43 Completed Fall Protocol Q1H Care 04/29/21 00:57 Active IV Care Q6H Care 04/29/21 00:57 Active IV Insertion STAT Care 04/28/21 17:43 Completed Oxygen-ED Only Nasal Cannula 2 lpm Care 04/28/21 17:[address] in Observation ROUTINE Care 04/29/21 00:57 Active Abiodun Mascorro Apply ROUTINE Care 04/29/21 00:57 Completed Weight,Daily 0600 Care 04/29/21 00:57 Active Heart-Healthy Diet Diet 04/29/21 Breakfast Active CHEST 1 VIEW (PORTABLE) Stat Exams 04/28/21 17:44 Completed CBC W DIFF AM.LAB Lab 04/29/21 04:50 Completed CBC W DIFF Stat Lab 04/28/21 18:33 Completed CMP AM.LAB Lab 04/29/21 04:50 Completed CMP Stat Lab 04/28/21 18:33 Completed Lactic Acid Stat Lab 04/28/21 18:45 Completed MAGNESIUM Stat Lab 04/28/21 18:33 Completed Manual Differential NC Routine Lab 04/29/21 04:50 Completed NT PRO BNP Stat Lab 04/28/21 18:33 Completed TROPONIN Q3H Lab 04/28/21 18:33 Completed TROPONIN Q3H Lab 04/28/21 21:15 Completed TROPONIN Q3H Lab 04/28/21 23:54 Completed TROPONIN Q3H Lab 04/29/21 02:44 Completed TROPONIN Q3H Lab 04/29/21 04:50 Completed UA W/RFX UR CULTURE Stat Lab 04/28/21 18:49 Completed Acetaminophen 325 mg [Tylenol 325 mg] Med 04/29/21 00:57 Ordered 650 mg PO Q4H PRN PRN Albuterol/Ipratropium 3ml Neb* [DUONEB 0.5-3 MG/3 ml Med 04/28/21 17:55 Discontinued Neb] 3 ml IH .STK-MED ONE Albuterol/Ipratropium 3ml Neb* [DUONEB 0.5-3 MG/3 ml Med 04/29/21 01:00 Ordered Neb] 3 ml IH Q6HRT Albuterol/Ipratropium 3ml Neb* [DUONEB 0.5-3 MG/3 ml Med 04/28/21 17:43 Discontinued Neb] 3 ml IH STAT ONE Aspirin 81 gm Chew [Baby Aspirin 81 mg Chew] Med 04/28/21 17:44 Discontinued 324 mg PO STAT ONE Furosemide 40 mg/4 ml [Lasix 40 MG/4 ML] Med 04/28/21 17:43 Discontinued 60 mg IV STAT ONE Furosemide 40 mg/4 ml [Lasix 40 MG/4 ML] Med 04/28/21 17:53 Discontinued 80 mg .ROUTE .STK-MED ONE Methylprednis Sod Succ 125 mg* [solu-MEDROL] Med 04/28/21 17:53 Discontinued 125 mg .ROUTE .STK-MED ONE Methylprednis Sod Succ 125 mg* [solu-MEDROL] 125 mg Med 04/28/21 17:43 Discontinued Water For Injection,Sterile [Sterile H2O 10 ml] 2 ml IV STAT Morphine Sulfate 2 mg Inj Med 04/29/21 00:57 Ordered 2 mg IV Q4H PRN PRN Ondansetron HCl 4 mg/2 ml [Zofran 4 MG/2 ML VIAL] Med 04/29/21 00:57 Ordered 4 mg IV Q6H PRN PRN Pantoprazole 40 mg [Protonix 40 mg IV] Med 04/29/21 10:00 Ordered 40 mg IV Q24H10 Water For Injection,Sterile [Sterile H2O 10 ml] Med 04/28/21 17:53 Discontinued 10 ml IJ .STK-MED ONE Pulse Oximetry .spot check RT 04/29/21 01:52 Active Respiratory Therapy Assessment DAILY RT 04/28/21 18:55 Completed Respiratory Therapy Assessment DAILY RT 04/29/21 01:52 Active Code(s): I50.9 - HEART FAILURE, UNSPECIFIED (2) COPD (chronic obstructive pulmonary disease) with chronic bronchitis Current Visit: Yes Status: Acute Code(s): J44.9 - CHRONIC OBSTRUCTIVE PULMONARY DISEASE, UNSPECIFIED
[2021-04-29 08:42] LABS: Risk Ratio 4.4
[2021-04-29] MEDS ORDERED: Klor Con 10 MEQ PO SCH (10:00)
[2021-04-29] MEDS ORDERED: Zestril 10 MG PO SCH (10:00)
[2021-04-29] MEDS ORDERED: Lasix 40 MG PO SCH (10:00)
[2021-04-29] MEDS ORDERED: Toprol-Xl 25MG Tablets PO SCH (10:00)
[2021-04-29] MEDS ORDERED: PROTONIX 40 MG IV IV SCH (10:00)
[2021-04-29] MEDS ORDERED: HYDROCODONE PO PRN (11:23)
[2021-04-29] MEDS ORDERED: ACETAMINOPHEN PO PRN (11:23)
[2021-04-29] MEDS ORDERED: [UNRECOGNIZED DRUG - OTHER] PO PRN (11:23)
[2021-04-29] MEDS ORDERED: ZOCOR 20MG PO SCH (12:00)
[2021-04-29 12:38] VITALS: BP 132/60; PULSE 101; O2SAT 96
--- NOTE | 2021-04-29 19:53 | PCM.DS ---
Discharge Summary Date of Admission: 04/29/21 00:47 Admitting Physician: DAX PATTERSON Primary Care Provider: MARY FINN Allergies Allergies No Known Drug Allergies Allergy (Unverified 04/28/21 17:13) Hospital Summary - Hospital Course Hospital Course: Chief Complaint Diagnosis shortness of breath for 1-2 days Allergies Allergy/AdvReac Type Severity Reaction Status Date / Time No Known Drug Allergies Allergy Unverified 04/28/21 17:13 Vital Signs (Last 24 hours) Temp Pulse Resp BP Pulse Ox 04/29/21 12:37 98.7 F 101 H 20 132/60 96 04/29/21 12:00 98.4 F 102 H 22 126/64 94 L 04/29/21 07:22 98.4 F 102 H 22 126/64 94 L 04/29/21 07:21 102 H 18 92 L 04/29/21 04:00 97.8 F 95 H 20 116/58 96 04/29/21 01:25 98 H 18 93 L 04/29/21 01:08 96.5 F 88 20 116/70 95 04/29/21 00:09 88 137/78 95 04/28/21 23:11 90 133/83 95 04/28/21 22:07 94 H 111/63 96 04/28/21 21:10 91 H 131/93 95 04/28/21 20:21 89 127/87 96 Home Medications Medication Instructions Recorded Confirmed Last Taken Type Atorvastatin Calcium 20 mg PO DAILY 04/28/21 04/28/21 04/28/21 History Dextroamphetamine/Amphetamine 15 mg PO DAILY 04/28/21 04/28/21 04/27/21 History [Adderall 15 mg Tablet] Furosemide 40 mg [Lasix 40 40 mg PO DAILY 04/28/21 04/28/21 04/28/21 History MG] Hydrocodone/Acetaminophen 1 tab PO PRN 04/28/21 04/25/21 History [Hydrocodone-Acetamin 10-300 mg] Testosterone Cypionate 100 mg IM 04/28/21 04/23/21 History Lisinopril 5 mg [Zestril 5 10 mg PO DAILY #30 tablet 04/29/21 Unknown Rx MG] Metoprolol Succinate 25 mg Xl* 25 mg PO DAILY 30 Days #30 tab 04/29/21 Unknown Rx [Toprol-Xl 25MG Tablets] Potassium Chloride 10 meq PO DAILY #30 04/29/21 Unknown Rx Current Medications Discontinued Medications Generic Name Dose Route Start Last Admin Trade Name Mj PRN Reason Stop Dose Admin Acetaminophen 650 mg 04/29/21 00:57 Acetaminophen 325 Mg Tablet PO 05/29/21 00:56 Q4H PRN PRN PAIN AND/OR FEVER Albuterol/Ipratropium 3 ml 04/28/21 17:43 04/28/21 17:55 Ipratropium/Albuterol Sulfate 3 Ml Ampul.Neb 04/28/21 17:44 3 ml STAT ONE Administration Albuterol/Ipratropium Confirm 04/28/21 17:55 Ipratropium/Albuterol Sulfate 3 Ml Ampul.Neb Administered 04/28/21 17:56 Dose 3 ml IH .STK-MED ONE Albuterol/Ipratropium 3 ml 04/29/21 01:00 04/29/21 07:19 Ipratropium/Albuterol Sulfate 3 Ml Ampul.Neb 05/29/21 00:59 3 ml Q6HRT AFSHAN Administration Aspirin 324 mg 04/28/21 17:44 04/28/21 17:55 Aspirin 81 Mg Tab.Chew PO 04/28/21 17:45 324 mg STAT ONE Administration Methylprednisolone Sodium 0 mg 04/28/21 17:43 04/28/21 17:55 Succinate 125 mg/ Sterile IV 04/28/21 17:44 125 mg Water 2 ml STAT ONE Administration Furosemide 60 mg 04/28/21 17:43 04/28/21 17:54 Furosemide 40 Mg/4 Ml Vial IV 04/28/21 17:44 60 mg STAT ONE Administration Furosemide Confirm 04/28/21 17:53 Furosemide 40 Mg/4 Ml Vial Administered 04/28/21 17:54 Dose 80 mg .ROUTE .STK-MED ONE Furosemide 40 mg 04/29/21 10:00 04/29/21 09:14 Furosemide 40 Mg Tablet PO 05/29/21 09:59 40 mg DAILY AFSHAN Administration Lisinopril 10 mg 04/29/21 10:00 04/29/21 09:14 Lisinopril 10 Mg Tablet PO 05/29/21 09:59 10 mg DAILY AFSHAN Administration Methylprednisolone Sodium Succinate Confirm 04/28/21 17:53 Methylprednis Sod Succ 125 Mg/2 Ml Vial Administered 04/28/21 17:54 Dose 125 mg .ROUTE .STK-MED ONE Metoprolol Succinate 25 mg 04/29/21 10:00 04/29/21 09:14 Metoprolol Succinate 25 Mg Xl Tab PO 05/29/21 09:59 25 mg DAILY AFSHAN Administration Morphine Sulfate 2 mg 04/29/21 00:57 Morphine Sulfate 2 Mg/Ml Inj IV 05/04/21 00:56 Q4H PRN PRN PAIN Non-Formulary Medication 1 tab 04/29/21 11:23 Hydrocodone/Acetaminophen [Hydrocodone-Acetamin 10-300 Mg] PO 05/29/21 11:22 QDP PRN PAIN Non-Formulary Medication 15 mg 04/30/21 10:00 Dextroamphetamine/Amphetamine [Adderall 15 Mg Tablet] PO 05/30/21 09:59 DAILY AFSHAN Ondansetron HCl 4 mg 04/29/21 00:57 Ondansetron Hcl 4 Mg/2 Ml Vial IV 05/29/21 00:56 Q6H PRN PRN NAUSEA/VOMITING Pantoprazole Sodium 40 mg 04/29/21 10:00 04/29/21 09:14 Pantoprazole 40 Mg Vial IV 05/29/21 09:59 40 mg Q24H10 AFSHAN Administration Potassium Chloride 10 meq 04/29/21 10:00 04/29/21 09:14 Potassium Chloride 10 Meq Tablet PO 05/29/21 09:59 10 meq DAILY AFSHAN Administration Simvastatin 20 mg 04/29/21 12:00 Simvastatin 20 Mg Tablet PO 05/29/21 11:59 DAILY AFSHAN Sterile Water Confirm 04/28/21 17:53 Water For Injection,Sterile 10 Ml Vial Administered 04/28/21 17:54 Dose 10 ml IJ .STK-MED ONE Intake & Output (Last 24 hours) 04/27/21 04/28/21 04/29/21 04/30/21 11:59 11:59 11:59 11:59 Intake Total 1440 120 Balance 1440 120 Weight 119 kg Laboratory Results (Last 24 hours) 04/29/21 04/29/21 04/29/21 04:50 04:50 04:50 WBC 4.2 RBC 4.37 Hgb 11.5 L Hct 36.2 L MCV 82.8 MCH 26.3 MCHC 31.8 L RDW 14.7 H Plt Count 189 MPV 10.8 Gran % 93.7 H Eos # (Auto) 0 Absolute Lymphs (auto) 0.22 L Absolute Monos (auto) 0.04 Lymphocytes % 5.3 L Monocytes % 1.0 Eosinophils % 0.0 Basophils % 0.0 Absolute Granulocytes 3.89 Basophils # 0 Sodium 141 Potassium 3.5 Chloride 102 Carbon Dioxide 28 Anion Gap 15.1 H BUN 20 Creatinine 1.62 H Estimated GFR 47.1 Glucose 225 H Calcium 8.6 Total Bilirubin 0.70 AST 23 ALT 24 Alkaline Phosphatase 76 Troponin I 0.026 NT-Pro-B Natriuret Pep Serum Total Protein 7.7 Albumin 4.1 Triglycerides Cholesterol LDL Cholesterol HDL Cholesterol Heart Disease Risk Ratio Influenza Type A Ag Influenza Type B Ag RSV (PCR) SARS-CoV-2 (PCR) Slides for Path Review YES 04/29/21 04/29/21 04/28/21 04:40 02:44 23:54 WBC RBC Hgb Hct MCV MCH MCHC RDW Plt Count MPV Gran % Eos # (Auto) Absolute Lymphs (auto) Absolute Monos (auto) Lymphocytes % Monocytes % Eosinophils % Basophils % Absolute Granulocytes Basophils # Sodium Potassium Chloride Carbon Dioxide Anion Gap BUN Creatinine Estimated GFR Glucose Calcium Total Bilirubin AST ALT Alkaline Phosphatase Troponin I 0.027 0.036 H* NT-Pro-B Natriuret Pep 3550 H Serum Total Protein Albumin Triglycerides 51 Cholesterol 142 LDL Cholesterol 87 HDL Cholesterol 33 L Heart Disease Risk Ratio 4.4 Influenza Type A Ag Influenza Type B Ag RSV (PCR) SARS-CoV-2 (PCR) Slides for Path Review 04/28/21 04/28/21 22:10 21:15 WBC RBC Hgb Hct MCV MCH MCHC RDW Plt Count MPV Gran % Eos # (Auto) Absolute Lymphs (auto) Absolute Monos (auto) Lymphocytes % Monocytes % Eosinophils % Basophils % Absolute Granulocytes Basophils # Sodium Potassium Chloride Carbon Dioxide Anion Gap BUN Creatinine Estimated GFR Glucose Calcium Total Bilirubin AST ALT Alkaline Phosphatase Troponin I 0.045 H* NT-Pro-B Natriuret Pep Serum Total Protein Albumin Triglycerides Cholesterol LDL Cholesterol HDL Cholesterol Heart Disease Risk Ratio Influenza Type A Ag NEGATIVE Influenza Type B Ag NEGATIVE RSV (PCR) NEGATIVE SARS-CoV-2 (PCR) NEGATIVE Slides for Path Review Orders (Last 24 hours) Category Date Time Status Bedrest ROUTINE Activity 04/29/21 00:57 Completed Up With Assistance ROUTINE Activity 04/29/21 00:57 Completed Code Status Order ROUTINE Care 04/29/21 00:57 Completed Fall Protocol Q1H Care 04/29/21 00:57 Completed IV Care Q6H Care 04/29/21 00:[address] in Observation ROUTINE Care 04/29/21 00:57 Completed Abiodun Mascorro, Apply ROUTINE Care 04/29/21 00:57 Completed Weight,Daily 0600 Care 04/29/21 00:57 Completed Heart-Healthy Diet Diet 04/29/21 Breakfast Completed Discharge Routine Discharge 04/29/21 12:01 Ordered BNP [NT PRO BNP] Stat Lab 04/29/21 04:40 Completed CBC W DIFF AM.LAB Lab 04/29/21 04:50 Completed CMP AM.LAB Lab 04/29/21 04:50 Completed LIPID PROFILE Stat Lab 04/29/21 04:40 Completed Manual Differential NC Routine Lab 04/29/21 04:50 Completed TROPONIN Q3H Lab 04/28/21 21:15 Completed TROPONIN Q3H Lab 04/28/21 23:54 Completed TROPONIN Q3H Lab 04/29/21 02:44 Completed TROPONIN Q3H Lab 04/29/21 04:50 Completed Acetaminophen 325 mg [Tylenol 325 mg] Med 04/29/21 00:57 Discontinued 650 mg PO Q4H PRN PRN Albuterol/Ipratropium 3ml Neb* [DUONEB 0.5-3 MG/3 ml Med 04/29/21 01:00 Discontinued Neb] 3 ml IH Q6HRT Dextroamphetamine/Amphetamine [Adderall 15 mg Tablet] Med 04/30/21 10:00 Discontinued 15 mg PO DAILY Furosemide 40 mg [Lasix 40 MG] Med 04/29/21 10:00 Discontinued 40 mg PO DAILY Hydrocodone/Acetaminophen [Hydrocodone-Acetamin 10-300 Med 04/29/21 11:23 Discontinued mg] 1 tab PO QDP PRN Lisinopril 10 mg [Zestril 10 MG] Med 04/29/21 10:00 Discontinued 10 mg PO DAILY Metoprolol Succinate 25 mg Xl* [Toprol-Xl 25MG Tablets* Med 04/29/21 10:00 Discontinued ] 25 mg PO DAILY Morphine Sulfate 2 mg Inj Med 04/29/21 00:57 Discontinued 2 mg IV Q4H PRN PRN Ondansetron HCl 4 mg/2 ml [Zofran 4 MG/2 ML VIAL] Med 04/29/21 00:57 Disc ontinued 4 mg IV Q6H PRN PRN Pantoprazole 40 mg [Protonix 40 mg IV] Med 04/29/21 10:00 Discontinued 40 mg IV Q24H10 Potassium Chloride 10 Meq Tab* [Klor Con 10 MEQ] Med 04/29/21 10:00 Discontinued 10 meq PO DAILY Simvastatin 20Mg [Zocor 20Mg] Med 04/29/21 12:00 Discontinued 20 mg PO DAILY Pulse Oximetry .spot check RT 04/29/21 01:52 Completed Respiratory Therapy Assessment DAILY RT 04/28/21 18:55 Completed Respiratory Therapy Assessment DAILY RT 04/29/21 01:52 Completed - Vitals & Intake/Output Vital Signs: Vital Signs Temperature 98.7 F 04/29/21 12:37 Pulse Rate 101 H 04/29/21 12:37 Respiratory Rate 20 04/29/21 12:37 Blood Pressure 132/60 04/29/21 12:37 O2 Sat by Pulse Oximetry 96 04/29/21 12:37 Intake & Output: Intake & Output 04/27/21 04/28/21 04/29/21 04/30/21 11:59 11:59 11:59 11:59 Intake Total 1440 120 Balance 1440 120 Weight 119 kg - Lab Result Diagrams: 04/29/21 04:50 04/29/21 04:50 Lab Results-Last 24 Hrs: Lab Results-Last 24 Hours 04/28/21 04/28/21 04/28/21 Range/Units 21:15 22:10 23:54 WBC (4.0-10.5) K/mm3 RBC (4.1-5.6) M/mm3 Hgb (12.5-18.0) gm/dl Hct (42-50) % MCV (78-100) fl MCH (26-32) pg MCHC (32-36) g/dl RDW (11.5-14.0) % Plt Count (150-450) K/mm3 MPV (7.5-11.0) fl Gran % (36.0-66.0) % Eos # (Auto) (0-0.5) Absolute Lymphs (auto) (1.0-4.6) Absolute Monos (auto) (0.0-1.3) Lymphocytes % (24.0-44.0) % Monocytes % (0.0-12.0) % Eosinophils % (0.00-5.0) % Basophils % (0.0-0.4) % Absolute Granulocytes (1.4-6.9) Basophils # (0-0.4) Sodium (137-145) mmol/L Potassium (3.5-5.1) mmol/L Chloride (98-107) mmol/L Carbon Dioxide (22-30) mmol/L Anion Gap (5-15) MEQ/L BUN (9-20) mg/dL Creatinine (0.66-1.25) mg/dL Estimated GFR ML/MIN Glucose (74-106) mg/dL Calcium (8.4-10.2) mg/dL Total Bilirubin (0.2-1.3) mg/dL AST (17-59) U/L ALT (0-50) U/L Alkaline Phosphatase (38-126) U/L Troponin I 0.045 H* 0.036 H* (0.000-0.034) ng/mL NT-Pro-B Natriuret Pep (0-900) pg/mL Serum Total Protein (6.3-8.2) g/dL Albumin (3.5-5.0) g/dL Triglycerides (30-150) mg/dL Cholesterol (50-200) mg/dL LDL Cholesterol (30-100) mg/dL HDL Cholesterol (40-60) mg/dL Heart Disease Risk Ratio Influenza Type A Ag NEGATIVE (NEGATIVE) Influenza Type B Ag NEGATIVE (NEGATIVE) RSV (PCR) NEGATIVE (Negative) SARS-CoV-2 (PCR) NEGATIVE (NEGATIVE) Slides for Path Review 04/29/21 04/29/21 04/29/21 Range/Units 02:44 04:40 04:50 WBC (4.0-10.5) K/mm3 RBC (4.1-5.6) M/mm3 Hgb (12.5-18.0) gm/dl Hct (42-50) % MCV (78-100) fl MCH (26-32) pg MCHC (32-36) g/dl RDW (11.5-14.0) % Plt Count (150-450) K/mm3 MPV (7.5-11.0) fl Gran % (36.0-66.0) % Eos # (Auto) (0-0.5) Absolute Lymphs (auto) (1.0-4.6) Absolute Monos (auto) (0.0-1.3) Lymphocytes % (24.0-44.0) % Monocytes % (0.0-12.0) % Eosinophils % (0.00-5.0) % Basophils % (0.0-0.4) % Absolute Granulocytes (1.4-6.9) Basophils # (0-0.4) Sodium (137-145) mmol/L Potassium (3.5-5.1) mmol/L Chloride (98-107) mmol/L Carbon Dioxide (22-30) mmol/L Anion Gap (5-15) MEQ/L BUN (9-20) mg/dL Creatinine (0.66-1.25) mg/dL Estimated GFR ML/MIN Glucose (74-106) mg/dL Calcium (8.4-10.2) mg/dL Total Bilirubin (0.2-1.3) mg/dL AST (17-59) U/L ALT (0-50) U/L Alkaline Phosphatase (38-126) U/L Troponin I 0.027 0.026 (0.000-0.034) ng/mL NT-Pro-B Natriuret Pep 3550 H (0-900) pg/mL Serum Total Protein (6.3-8.2) g/dL Albumin (3.5-5.0) g/dL Triglycerides 51 (30-150) mg/dL Cholesterol 142 (50-200) mg/dL LDL Cholesterol 87 (30-100) mg/dL HDL Cholesterol 33 L (40-60) mg/dL Heart Disease Risk Ratio 4.4 Influenza Type A Ag (NEGATIVE) Influenza Type B Ag (NEGATIVE) RSV (PCR) (Negative) SARS-CoV-2 (PCR) (NEGATIVE) Slides for Path Review 04/29/21 04/29/21 Range/Units 04:50 04:50 WBC 4.2 (4.0-10.5) K/mm3 RBC 4.37 (4.1-5.6) M/mm3 Hgb 11.5 L (12.5-18.0) gm/dl Hct 36.2 L (42-50) % MCV 82.8 (78-100) fl MCH 26.3 (26-32) pg MCHC 31.8 L (32-36) g/dl RDW 14.7 H (11.5-14.0) % Plt Count 189 (150-450) K/mm3 MPV 10.8 (7.5-11.0) fl Gran % 93.7 H (36.0-66.0) % Eos # (Auto) 0 (0-0.5) Absolute Lymphs (auto) 0.22 L (1.0-4.6) Absolute Monos (auto) 0.04 (0.0-1.3) Lymphocytes % 5.3 L (24.0-44.0) % Monocytes % 1.0 (0.0-12.0) % Eosinophils % 0.0 (0.00-5.0) % Basophils % 0.0 (0.0-0.4) % Absolute Granulocytes 3.89 (1.4-6.9) Basophils # 0 (0-0.4) Sodium 141 (137-145) mmol/L Potassium 3.5 (3.5-5.1) mmol/L Chloride 102 (98-107) mmol/L Carbon Dioxide 28 (22-30) mmol/L Anion Gap 15.1 H (5-15) MEQ/L BUN 20 (9-20) mg/dL Creatinine 1.62 H (0.66-1.25) mg/dL Estimated GFR 47.1 ML/MIN Glucose 225 H (74-106) mg/dL Calcium 8.6 (8.4-10.2) mg/dL Total Bilirubin 0.70 (0.2-1.3) mg/dL AST 23 (17-59) U/L ALT 24 (0-50) U/L Alkaline Phosphatase 76 (38-126) U/L Troponin I (0.000-0.034) ng/mL NT-Pro-B Natriuret Pep (0-900) pg/mL Serum Total Protein 7.7 (6.3-8.2) g/dL Albumin 4.1 (3.5-5.0) g/dL Triglycerides (30-150) mg/dL Cholesterol (50-200) mg/dL LDL Cholesterol (30-100) mg/dL HDL Cholesterol (40-60) mg/dL Heart Disease Risk Ratio Influenza Type A Ag (NEGATIVE) Influenza Type B Ag (NEGATIVE) RSV (PCR) (Negative) SARS-CoV-2 (PCR) (NEGATIVE) Slides for Path Review YES - Radiology Exams Ordered Rad Exams-Entire Visit: Radiology Procedures Category Date Time Status CHEST 1 VIEW (PORTABLE) Stat Exams 04/28/21 17:44 Completed - Procedures and Test Procedures and Tests throughout Hospitalization: Therapy Orders & Screens 04/28/21 18:55 Respiratory Therapy Assessment DAILY Comment: 04/29/21 01:52 Respiratory Therapy Assessment DAILY Comment: Diagnosis: CHF exacerbation Discharge Exam General Appearance: no apparent distress, alert Neurologic Exam: alert, oriented x 3, cooperative, normal mood/affect, nml cerebellar function, sensation nml, No motor deficits Eye Exam: PERRL, EOMI, eyes nml inspection Ears, Nose, Throat Exam: normal ENT inspection, pharynx normal, moist mucous membranes Neck Exam: normal inspection, non-tender, supple, full range of motion Respiratory Exam: normal breath sounds, lungs clear, No respiratory distress Cardiovascular Exam: regular rate/rhythm, normal heart sounds Gastrointestinal/Abdomen Exam: soft, No tenderness, No mass Male Genitalia Exam: deferred Rectal Exam: deferred Back Exam: normal inspection, normal range of motion, No CVA tenderness, No vertebral tenderness Extremity Exam: normal inspection, normal range of motion Skin Exam: normal color, warm, dry Final Diagnosis/Problem List - Final Discharge Diagnosis/Problem (1) CHF exacerbation Status: Resolved Code(s): I50.9 - HEART FAILURE, UNSPECIFIED (2) COPD (chronic obstructive pulmonary disease) with chronic bronchitis Status: Resolved Code(s): J44.9 - CHRONIC OBSTRUCTIVE PULMONARY DISEASE, UNSPECIFIED - Discharge Discharge Date: 04/29/21 Disposition: Home, Self-Care Condition: Stable Prescriptions: New Metoprolol Succinate 25 mg Xl* [Toprol-Xl 25MG Tablets] 25 mg PO DAILY 30 Days #30 tab Lisinopril 5 mg [Zestril 5 MG] 10 mg PO DAILY #30 tablet Potassium Chloride 10 meq PO DAILY #30 Continue Atorvastatin Calcium 20 mg PO DAILY Dextroamphetamine/Amphetamine [Adderall 15 mg Tablet] 15 mg PO DAILY Furosemide 40 mg [Lasix 40 MG] 40 mg PO DAILY Testosterone Cypionate 100 mg IM Hydrocodone/Acetaminophen [Hydrocodone-Acetamin 10-300 mg] 1 tab PO PRN PRN Reason: Pain Instructions: Heart Failure, Adult (DC) Additional Instructions: CALL FRIDAY AND MAKE A FOLLOW UP APPOINTMENT WITH DR. PATTERSON ([place]) OFFICE FOR NEXT WEEK [phone], [address] [facility] [place] [id number] Forms: Discharge Instructions
[2021-04-30] MEDS ORDERED: NON-FORMULARY ITEM (Atorvastatin Calcium [Atorvastatin Calcium] 20 MG Tablet) PO SCH (10:00)
[2021-04-30] MEDS ORDERED: DEXTROAMPHETAMINE PO SCH (10:00)
[2021-04-30] MEDS ORDERED: AMPHETAMINE PO SCH (10:00)
== END 2021-04-29 12:26 | disposition home or self-care (01) ==
LOC: ED 16:43 → MED SURG 04-29 00:47
PROVIDERS: ADMIT General Practice; ATTEND General Practice
DX: I50.9 Heart failure, unspecified (principal); I50.43 Acute on chronic combined systolic (congestive) and diastolic (congestive) heart failure; J44.9 Chronic obstructive pulmonary disease, unspecified; I25.10 Atherosclerotic heart disease of native coronary artery without angina pectoris; R22.43 Localized swelling, mass and lump, lower limb, bilateral; I25.2 Old myocardial infarction; Z79.899 Other long term (current) drug therapy; Z72.0 Tobacco use; Z20.828 Contact with and (suspected) exposure to other viral communicable diseases
CPT/HCPCS: 0241U; 36000; 36415; 71045; 80053; 80061; 81001; 83605; 83721; 83735; 83880; 84484; 85025; 87040; 93005; 93041; 93268; 94640; 94760; 96374; 99285; G0378; J1940; J2930; A9270-GY